=== PATIENT | female | born 1980 | race Asian ===

== ENCOUNTER 2017-09-05 06:19 | Emergency (ER) | payer SELFPAY ==
[~2017-09-05] VITALS: Ht 162.6 cm; Wt 71.5 kg
[2017-09-05] MEDS ORDERED: PREN-134 PO (06:25)
[2017-09-05 07:41] VITALS: BP 124/81
== END 2017-09-05 07:52 | disposition home or self-care (01) ==
LOC: EMS 06:20
DX: T16.2XXA Foreign body in left ear, initial encounter (principal); X58.XXXA Exposure to other specified factors, initial encounter; Y93.89 Activity, other specified; Y92.89 Other specified places as the place of occurrence of the external cause; Y99.8 Other external cause status
CPT/HCPCS: 99283

== ENCOUNTER 2019-05-07 07:42 | Emergency (ER) | payer MEDICAID ==
[~2019-05-07] VITALS: Ht 170.2 cm; Wt 86.4 kg
[~2019-05-07 07:42] MED LIST: PREN-134 PO
[2019-05-07] MEDS ORDERED: ONDANSETRON HCL 4 MG TABLET PO ONE (08:15)
[2019-05-07] MEDS ORDERED: LORazepam 2 MG TABLET PO ONE (08:15)
[2019-05-07 09:04] VITALS: BP 106/62
== END 2019-05-07 09:47 | disposition home or self-care (01) ==
LOC: EMS 07:42
DX: F41.9 Anxiety disorder, unspecified (principal); R07.89 Other chest pain; R11.0 Nausea
CPT/HCPCS: 93005; 99283; Q0162